=== PATIENT | female | born 1945 | race Hispanic/Latino ===

== ENCOUNTER 2018-02-11 10:28 | Emergency (ER) | payer BC, MEDICARE | END 2018-02-11 12:03 | disposition home or self-care (01) | LOC: EDH 10:28 | DX: S06.0X0A Concussion without loss of consciousness, initial encounter (principal); R11.0 Nausea; Z98.890 Other specified postprocedural states; W20.8XXA Other cause of strike by thrown, projected or falling object, initial encounter; Y93.89 Activity, other specified; Y92.59 Other trade areas as the place of occurrence of the external cause; Y99.8 Other external cause status | CPT/HCPCS: 70450 ==